=== PATIENT | male | born 1990 | race Caucasian/White ===

== ENCOUNTER 2022-12-17 15:45 | Emergency (ER) | payer BC ==
[~2022-12-17] VITALS: Ht 188 cm; Wt 130.3 kg
[2022-12-17] MEDS ORDERED: SERO1TAB3 PO (15:51)
[2022-12-17 19:00] VITALS: BP 134/88; TEMP 98.4; O2SAT 100
== END 2022-12-17 19:00 | disposition home or self-care (01) ==
LOC: M ED 15:45
DX: Z48.02 Encounter for removal of sutures (principal)

== ENCOUNTER 2023-04-27 23:39 | Emergency (ER) | payer BC ==
[~2023-04-27] VITALS: Ht 188 cm; Wt 129.0 kg
[~2023-04-27 23:39] MED LIST: SERO1TAB3 PO
[2023-04-27 23:41] VITALS: BP 133/97; TEMP 96.9; O2SAT 97
[2023-04-28] MEDS ORDERED: CEPH500C PO (07:33)
== END 2023-04-28 00:41 | disposition left against medical advice (07) ==
LOC: M ED 23:39
DX: Z53.21 Procedure and treatment not carried out due to patient leaving prior to being seen by health care provider (principal)

== ENCOUNTER 2023-04-28 06:38 | Emergency (ER) | payer OTHER, BC ==
[~2023-04-28] VITALS: Ht 188 cm; Wt 120.0 kg
[2023-04-28 06:38] VITALS: BP 157/71; TEMP 98.9; O2SAT 97
[2023-04-28] MEDS ORDERED: CEPH500C PO (07:33)
[2023-04-28] MEDS ORDERED: CEPHALEXIN 500 MG CAP PO ONE (07:35)
== END 2023-04-28 07:45 | disposition home or self-care (01) ==
LOC: M ED 06:38
DX: S61.200A Unspecified open wound of right index finger without damage to nail, initial encounter (principal); X58.XXXA Exposure to other specified factors, initial encounter; Y92.9 Unspecified place or not applicable; Y93.9 Activity, unspecified; Y99.0 Civilian activity done for income or pay; G47.00 Insomnia, unspecified; Z79.899 Other long term (current) drug therapy

== ENCOUNTER → 2023-12-24 | Outpatient (CLI) | payer OTHER ==
[~2023-12-24] MED LIST changes: +CEPH500C PO
[2023-12-24 10:56] LABS: BASO # 0.1 10^3/uL (0.0-0.2); BASO % 0.8 % (0.0-1.0); EOS # 0.2 10^3/uL (0.0-0.5); EOS % 2.2 % (0.0-3.0); HEMOGLOBIN 15.8 g/dl (13.5-17.5); LYMPH # 3.2 10^3/uL (1.5-5.0); MEAN CORPUSCULAR HGB CONC 32.9 g/dl (32.0-36.5); MEAN CORPUSCULAR VOLUME 91.3 fl (80.0-96.0); MONO # 0.6 10^3/uL (0.0-0.8); MONO % 6.9 % (2.0-8.0); NEUTROPHILS # 4.8 10^3/uL (1.5-8.5); NEUTROPHILS % 53.9 % (36.0-66.0); PLATELET COUNT, AUTOMATED 245 10^3/uL (150-450); RED BLOOD COUNT 5.26 10^6/uL (4.30-6.10)
[2023-12-24 11:17] LABS: HEMOGLOBIN A1c 7.4 % (4.0-6.0)
[2023-12-24 11:19] LABS: ALBUMIN 3.5 G/DL (3.2-5.2); ALKALINE PHOSPHATASE 95 U/L (46-116); ALT/SGPT 135 U/L (7.0-40); AST/SGOT 62 U/L (<34); BILIRUBIN,TOTAL 0.5 MG/DL (0.3-1.2); BLOOD UREA NITROGEN 10 MG/DL (9-23); CALCIUM LEVEL 8.6 MG/DL (8.5-10.1); CARBON DIOXIDE LEVEL 29 MMOL/L (20-31); CHLORIDE LEVEL 106 MMOL/L (98-107); CHOLESTEROL LEVEL 189 MG/DL (<200); CHOLESTEROL RISK RATIO 4.64 (<5); CREATININE FOR GFR 0.87 MG/DL (0.70-1.30); GLOMERULAR FILTRATION RATE > 60.0 (>60); GLUCOSE, FASTING 116 MG/DL (60-100); HDL CHOLESTEROL 40.7 MG/DL (>40); LDL CHOLESTEROL 110.1 MG/DL (<100); MAGNESIUM LEVEL 1.6 MG/DL (1.8-2.4); NON-HDL-C 148.3 MG/DL; POTASSIUM SERUM 4.1 MMOL/L (3.5-5.1); SODIUM LEVEL 139 MMOL/L (136-145); TRIGLYCERIDES LEVEL 191 MG/DL (<150)
[2023-12-24 11:20] LABS: FREE T4 1.03 NG/DL (0.89-1.76)
[2023-12-24 11:21] LABS: THYROID STIMULATING HORMONE 2.653 uIU/ML (0.55-4.78); THYROXINE (T4) 8.4 UG/DL (4.5-10.9); TOTAL 25(OH) VITAMIN D 16.7 NG/ML (20.0-100.0)
== END ==
LOC: M LAB 09:24
PROVIDERS: ATTEND Nurse Practitioner Psychiatric/Mental Health
DX: F39 Unspecified mood [affective] disorder (principal)

== ENCOUNTER 2024-03-02 08:03 | Emergency (ER) | payer OTHER ==
[~2024-03-02] VITALS: Ht 188 cm; Wt 139.2 kg
[2024-03-02] MEDS ORDERED: CLON1TAB8 (09:22)
[2024-03-02] MEDS ORDERED: BIOT1CAP2 PO (09:22)
[2024-03-02] MEDS ORDERED: VITA1TAB61 PO (09:22)
[2024-03-02] MEDS ORDERED: ARIP1TAB4 (09:22)
[2024-03-02] MEDS ORDERED: CLON0.2T (09:22)
[2024-03-02] MEDS ORDERED: MAG100TA PO (09:22)
[2024-03-02] MEDS ORDERED: VITA200032 (09:22)
[2024-03-02] MEDS ORDERED: QUET400T2 (09:22)
[2024-03-02] MEDS ORDERED: AMPH1CAP15 (09:22)
[2024-03-02 11:27] VITALS: BP 133/94; TEMP 98.6; O2SAT 96
[2024-03-02] MEDS ORDERED: CLAR10CA3 PO (11:52)
== END 2024-03-02 12:00 | disposition home or self-care (01) ==
LOC: M ED 08:03
DX: R07.0 Pain in throat (principal); G47.00 Insomnia, unspecified; F20.9 Schizophrenia, unspecified; F31.9 Bipolar disorder, unspecified

== ENCOUNTER → 2024-04-08 | Outpatient (REF) | payer OTHER ==
[~2024-04-08] MED LIST changes: +AMPH1CAP15; +ARIP1TAB4; +BIOT1CAP2 PO; +CLAR10CA3 PO; +CLON0.2T; +CLON1TAB8; +MAG100TA PO; +QUET400T2; +VITA1TAB61 PO; +VITA200032
[2024-04-08 14:08] LABS: ALBUMIN 3.9 G/DL (3.2-5.2); ALKALINE PHOSPHATASE 99 U/L (40-129); ALT/SGPT 165 U/L (7.0-40); AST/SGOT 98 U/L (<34); BILIRUBIN,TOTAL 0.4 MG/DL (0.3-1.2); BLOOD UREA NITROGEN 10 MG/DL (9-23); CALCIUM LEVEL 9.5 MG/DL (8.5-10.1); CARBON DIOXIDE LEVEL 27 MMOL/L (20-31); CHLORIDE LEVEL 107 MMOL/L (98-107); CHOLESTEROL LEVEL 187 MG/DL (<200); CHOLESTEROL RISK RATIO 4.64 (<5); CREATININE FOR GFR 0.74 MG/DL (0.70-1.30); GLOMERULAR FILTRATION RATE > 60.0 (>60); GLUCOSE, FASTING 123 MG/DL (60-100); HDL CHOLESTEROL 40.3 MG/DL (>40); LDL CHOLESTEROL 106.5 MG/DL (<100); NON-HDL-C 146.7 MG/DL; POTASSIUM SERUM 4.2 MMOL/L (3.5-5.1); SODIUM LEVEL 142 MMOL/L (136-145); TOTAL PROTEIN 7.8 G/DL (5.7-8.2); TRIGLYCERIDES LEVEL 201 MG/DL (<150)
[2024-04-08 14:10] LABS: THYROID STIMULATING HORMONE 2.876 uIU/ML (0.55-4.78); TOTAL 25(OH) VITAMIN D 39.6 NG/ML (20.0-100.0)
[2024-04-08 14:17] LABS: HEMOGLOBIN A1c 9.9 % (4.0-6.0)
[2024-04-08 14:40] LABS: HIV 1&2 SCREEN NEGATIVE (NEGATIVE)
[2024-04-08 14:41] LABS: Trichomonas vaginalis (AMP) NOT DETECTED (NEGATIVE)
[2024-04-08 14:48] LABS: HEPATITIS C VIRUS ABY INDEX < 0.02 INDEX (<0.8)
[2024-04-08 15:05] LABS: GC DNA AMPLIFICATION NEGATIVE (NEGATIVE)
== END ==
LOC: M LAB REF 12:54
PROVIDERS: ATTEND Physician Assistant
DX: Z11.9 Encounter for screening for infectious and parasitic diseases, unspecified (principal); E11.9 Type 2 diabetes mellitus without complications

== ENCOUNTER → 2025-01-06 | Outpatient (CLI) | payer OTHER | LOC: M RAD 14:21 | PROVIDERS: ATTEND Physician Assistant | DX: R06.83 Snoring (principal) ==